=== PATIENT | female | born 1995 | race Caucasian/White ===

== ENCOUNTER 2019-11-02 17:04 | Outpatient (CLI) | payer BC, MEDICAID ==
[2019-11-02 18:01] LABS: APPEARANCE,URINE SLIGHTLY-CLOUDY; BILIRUBIN,URINE NEGATIVE (NEGATIVE); COLOR,URINE YELLOW; GLUCOSE, URINE NEGATIVE (NEGATIVE); KETONES,URINE NEGATIVE (NEGATIVE); LEUKOCYTE ESTERASE,URINE NEGATIVE (NEGATIVE); NITRITE,URINE NEGATIVE (NEGATIVE); PROTEIN,URINE NEGATIVE (NEGATIVE); URINE SPECIFIC GRAVITY 1.009; UROBILINOGEN,URINE NEGATIVE mg/dL (<2.0)
[2019-11-02 18:22] LABS: URINE AMPHETAMINES SCREEN NEGATIVE; URINE BARBITURATES SCREEN NEGATIVE; URINE BENZODIAZEPINES SCREEN NEGATIVE; URINE COCAINE SCREEN NEGATIVE; URINE MARIJUANA (THC) SCREEN NEGATIVE; URINE METHADONE SCREEN NEGATIVE; URINE PHENCYCLIDINE SCREEN NEGATIVE
== END 2019-11-02 18:19 | disposition home or self-care (01) ==
LOC: LC 17:04
PROVIDERS: ATTEND Obstetrics & Gynecology Gynecology
DX: O99.89 Other specified diseases and conditions complicating pregnancy, childbirth and the puerperium (principal); R10.32 Left lower quadrant pain; Z3A.23 23 weeks gestation of pregnancy
CPT/HCPCS: 80307; 81001

== ENCOUNTER 2020-01-23 17:41 | Outpatient (CLI) | payer BC, MEDICAID ==
[2020-01-23 18:55] LABS: APPEARANCE,URINE CLEAR; BILIRUBIN,URINE NEGATIVE (NEGATIVE); COLOR,URINE STRAW; GLUCOSE, URINE NEGATIVE (NEGATIVE); KETONES,URINE NEGATIVE (NEGATIVE); LEUKOCYTE ESTERASE,URINE NEGATIVE (NEGATIVE); NITRITE,URINE NEGATIVE (NEGATIVE); PROTEIN,URINE NEGATIVE (NEGATIVE); URINE SPECIFIC GRAVITY 1.004; UROBILINOGEN,URINE NEGATIVE mg/dL (<2.0)
[2020-01-23 19:00] LABS: ADD MANUAL MICROSCOPIC YES; RBC,URINE RARE /HPF
[2020-01-23 19:17] LABS: URINE AMPHETAMINES SCREEN NEGATIVE; URINE BARBITURATES SCREEN NEGATIVE; URINE BENZODIAZEPINES SCREEN NEGATIVE; URINE COCAINE SCREEN NEGATIVE; URINE MARIJUANA (THC) SCREEN NEGATIVE; URINE METHADONE SCREEN NEGATIVE; URINE PHENCYCLIDINE SCREEN NEGATIVE
--- NOTE | 2020-01-23 20:46 | Non Stress Test Report ---
Non Stress Test Datetime Report Generated by CPN: 01/23/2020 20:46 DEMOGRAPHIC EGA NST: 35.4 INDICATION Indication for Study (NST) Other: Labor Check - Contractions VITAL SIGNS Pulse - NST: 82 RESP - NST: 17 NBPSYS NST: 108 MONITORING Monitor Explained: Monitor Explained; Test Explained; Patient Verbalized Understanding Time on Monitor: 01/23/2020 17:52 Time off Monitor: 01/23/2020 20:13 NST INTERVENTIONS NST Interventions: PO Hydration Physician Notified NST: Dr. Suarez BABY A: [id number] BABY A Movement : Present Contraction Frequency : 3-7 FHR Baseline : 130 Accelerations : 15X15 Decelerations : None Variability : Moderate 6-25bpm NST Review: Meets Criteria for Reactive NST NST Review and Verified By : Deann Monzon RN NST Results: Reactive NST REPORT Report Trigger: Send Report
== END 2020-01-23 20:23 | disposition home or self-care (01) ==
LOC: LC 17:41
PROVIDERS: ATTEND Obstetrics & Gynecology
DX: O47.03 False labor before 37 completed weeks of gestation, third trimester (principal); Z3A.35 35 weeks gestation of pregnancy
CPT/HCPCS: 59025; 80307; 81001

== ENCOUNTER 2020-02-11 21:32 | Outpatient (CLI) | payer BC, MEDICAID ==
[2020-02-11 22:19] LABS: APPEARANCE,URINE CLEAR; BILIRUBIN,URINE NEGATIVE (NEGATIVE); COLOR,URINE STRAW; GLUCOSE, URINE NEGATIVE (NEGATIVE); KETONES,URINE NEGATIVE (NEGATIVE); LEUKOCYTE ESTERASE,URINE NEGATIVE (NEGATIVE); NITRITE,URINE NEGATIVE (NEGATIVE); PROTEIN,URINE NEGATIVE (NEGATIVE); URINE SPECIFIC GRAVITY 1.006; UROBILINOGEN,URINE NEGATIVE mg/dL (<2.0)
[2020-02-11 22:46] LABS: URINE AMPHETAMINES SCREEN NEGATIVE; URINE COCAINE SCREEN NEGATIVE; URINE MARIJUANA (THC) SCREEN NEGATIVE; URINE METHADONE SCREEN NEGATIVE; URINE PHENCYCLIDINE SCREEN NEGATIVE
[2020-02-11 22:49] LABS: URINE BENZODIAZEPINES SCREEN NEGATIVE
[2020-02-11 22:51] LABS: URINE BARBITURATES SCREEN NEGATIVE
--- NOTE | 2020-02-11 23:01 | Non Stress Test Report ---
Non Stress Test Datetime Report Generated by CPN: 02/11/2020 23:00 DEMOGRAPHIC EGA NST: 38.2 INDICATION Indication for Study (NST) Other: decreased movement MONITORING Monitor Explained: Monitor Explained; Test Explained; Patient Verbalized Understanding Time on Monitor: 02/11/2020 21:45 Time off Monitor: 02/11/2020 22:50 NST Duration: 65 NST INTERVENTIONS NST Interventions: PO Hydration; Reposition Patient Physician Notified NST: Dr. Pimentel BABY A: [id number] BABY A Movement : Present Contraction Frequency : irregular FHR Baseline : 120 Accelerations : 15X15 Decelerations : None Variability : Moderate 6-25bpm NST Review: Meets Criteria for Reactive NST NST Review and Verified By : Seamus Bellavamaida RN NST Results: Reactive NST REPORT Report Trigger: Send Report
== END 2020-02-11 22:57 | disposition home or self-care (01) ==
LOC: LC 21:32
PROVIDERS: ATTEND Obstetrics & Gynecology Gynecology
DX: O36.8130 Decreased fetal movements, third trimester, not applicable or unspecified (principal); Z3A.36 36 weeks gestation of pregnancy; Z02.83 Encounter for blood-alcohol and blood-drug test
CPT/HCPCS: 59025; 80307; 81005; 84112

== ENCOUNTER 2020-02-15 12:28 | Outpatient (CLI) | payer BC, MEDICAID ==
[2020-02-15 13:45] LABS: APPEARANCE,URINE CLEAR; BILIRUBIN,URINE NEGATIVE (NEGATIVE); COLOR,URINE STRAW; GLUCOSE, URINE 50 mg/dL (NEGATIVE); KETONES,URINE NEGATIVE (NEGATIVE); LEUKOCYTE ESTERASE,URINE NEGATIVE (NEGATIVE); NITRITE,URINE NEGATIVE (NEGATIVE); PROTEIN,URINE NEGATIVE (NEGATIVE); URINE SPECIFIC GRAVITY 1.003; UROBILINOGEN,URINE NEGATIVE mg/dL (<2.0)
[2020-02-15 14:09] LABS: URINE AMPHETAMINES SCREEN NEGATIVE; URINE BARBITURATES SCREEN NEGATIVE; URINE BENZODIAZEPINES SCREEN NEGATIVE; URINE COCAINE SCREEN NEGATIVE; URINE MARIJUANA (THC) SCREEN NEGATIVE; URINE METHADONE SCREEN NEGATIVE; URINE PHENCYCLIDINE SCREEN NEGATIVE
== END 2020-02-15 15:30 | disposition home or self-care (01) ==
LOC: LC 12:28
PROVIDERS: ATTEND Obstetrics & Gynecology Gynecology
DX: O47.1 False labor at or after 37 completed weeks of gestation (principal); Z3A.38 38 weeks gestation of pregnancy
CPT/HCPCS: 80307; 81005; 84112

== ENCOUNTER 2020-03-01 15:02 | Inpatient (IN) | payer BC, MEDICAID ==
[2020-03-01] MEDS ORDERED: RINGERS SOLUTION,LACTATED 1,000 ML IV ONE (15:16)
[2020-03-01] MEDS ORDERED: MISOPROSTOL 0.2 MG TABLET ONE (15:23)
[2020-03-01] MEDS ORDERED: OXYTOCIN 10 UNIT/ML VIAL ONE (15:23)
[2020-03-01] MEDS ORDERED: LIDOCAINE 1% INJ-PF (10 MG/ML) 30 ML SDV ONE (15:23)
[2020-03-01] MEDS ORDERED: OXYTOCIN/0.9 % SODIUM CHLORIDE 30 UNIT/500 ML RTUINJ ONE (15:23)
[2020-03-01 15:40] LABS: APPEARANCE,URINE SLIGHTLY-CLOUDY; BILIRUBIN,URINE NEGATIVE (NEGATIVE); COLOR,URINE STRAW; GLUCOSE, URINE NEGATIVE (NEGATIVE); KETONES,URINE NEGATIVE (NEGATIVE); LEUKOCYTE ESTERASE,URINE NEGATIVE (NEGATIVE); NITRITE,URINE NEGATIVE (NEGATIVE); PROTEIN,URINE NEGATIVE (NEGATIVE); URINE SPECIFIC GRAVITY 1.005; UROBILINOGEN,URINE NEGATIVE mg/dL (<2.0)
[2020-03-01 15:54] LABS: ABSOLUTE LYMPHOCYTES (AUTO) 1.5 10^3/uL (0.5-4.7); ABSOLUTE MONOCYTES (AUTO) 0.5 10^3/uL (0.1-1.4); ABSOLUTE NEUT (AUTO) 6.5 10^3/uL (1.7-8.2); BASOPHILS % (AUTO) 0.4 % (0-2); EOSINOPHILS % (AUTO) 0.2 % (0-6); HEMATOCRIT 33.3 % (36.0-47.0); HEMOGLOBIN 11.5 g/dL (12.0-15.5); LYMPHOCYTES % (AUTO) 17.3 % (13-45); MEAN CORPUSCULAR HEMOGLOBIN 32.7 pg (27.0-33.4); MEAN CORPUSCULAR HGB CONC 34.5 g/dL (32.0-36.0); MEAN CORPUSCULAR VOLUME 95 fl (80-97); MONOCYTES % (AUTO) 6.2 % (3-13); PLATELET COUNT 117 10^3/uL (150-450); RED BLOOD COUNT 3.51 10^6/uL (3.72-5.28); RED CELL DISTRIBUTION WIDTH 15.2 % (11.5-14.0); SEGMENTED NEUTROPHILS % (AUTO) 75.9 % (42-78); TOTAL CELLS COUNTED % (AUTO) 100 %; WHITE BLOOD COUNT 8.6 10^3/uL (4.0-10.5)
[2020-03-01 16:03] LABS: URINE AMPHETAMINES SCREEN NEGATIVE; URINE BARBITURATES SCREEN NEGATIVE; URINE BENZODIAZEPINES SCREEN NEGATIVE; URINE COCAINE SCREEN NEGATIVE; URINE MARIJUANA (THC) SCREEN NEGATIVE; URINE METHADONE SCREEN NEGATIVE; URINE PHENCYCLIDINE SCREEN NEGATIVE
[2020-03-01] MEDS: RINGERS SOLUTION,LACTATED 1,000 ML IV PRN ×3 (16:17→22:35)
[2020-03-01] MEDS ORDERED: NALBUPHINE HCL INJ 10 MG/1 ML AMPULE IV ONE (16:50)
[2020-03-01] MEDS ORDERED: PROMETHAZINE HCL INJ 25 MG/1 ML VIAL IV ONE (16:50)
[2020-03-01] MEDS ORDERED: NALBUPHINE HCL INJ 10 MG/1 ML AMPULE ONE (16:51)
[2020-03-01] MEDS ORDERED: PROMETHAZINE HCL INJ 25 MG/1 ML VIAL ONE (16:51)
[2020-03-01] MEDS ORDERED: FENTANYL/BUPIVACAINE/NS/PF 300 MCG/150 ML RTUINJ EPI ONE (18:02)
[2020-03-01] MEDS ORDERED: ROPIVACAINE HCL 0.2% INJ/PF (2 MG/ML) 20 ML SDV ONE (18:02)
[2020-03-01] MEDS ORDERED: EPHEDRINE SULFATE INJ 50 MG/1 ML AMPULE ONE (18:02)
--- NOTE | 2020-03-02 00:47 | Admission Physical ---
Datetime Report Generated by CPN: 03/02/2020 00:46 CURRENT ADMISSION Chief Complaint: Uterine Contractions; Suspected Ruptured Membranes Indication for Induction: Not Applicable Admit Impression : Term, Intrauterine Admit Plan: Admit to Unit; Initiate Labor Protocol ALLERGIES Medication Allergies: No Medication Allergies: No Known Allergies (03/01/2020) Latex: No Latex Allergies Food Allergies: none Environmental Allergies: none OBSTETRICAL HISTORY EDC: 02/23/2020 00:00 : 1 Para: 0 Term: 0 : 0 SAB: 0 IAB: 0 Ectopic: 0 Livin Cesareans: 0 VBACs: 0 Multiple Births: 0 Gestational Diabetes: No Rh Sensitization: No Incompetent Cervix: No JOVANA: No Infertility: No ART Treatment: No Uterine Anomaly: No IUGR: No Hx Previous C/S: No Macrosomia: No Hx Loss/Stillborn: No PIH: No Hx : No Placenta Previa/Abruption: No Depression/PP Depression: Yes PTL/PROM: No Post Hemorrhage: No Current Procedures: Ultrasound Obstetrical History Comments: G1- current SEE RECORDS Alcohol: No Marijuana : No Cocaine: No Other Illicit Drugs: No Cigarettes: Never Smoker. 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 Surgery: No Heart Disease: No Hosp/Surgery: No Autoimmune Disorder: No Anesthetic Complications: No Kidney Disease: No Abnormal Pap Smear: No Neuro/Epilepsy: No Psychiatric Disorders: No Other Medical Diseases: Yes Hepatitis/Liver Disease: No Significant Family History: No Varicosities/Phlebitis: No Trauma/Violence : No Thyroid Dysfunction: No Medical History Comments: fibromyalgia and depression INFECTIOUS HISTORY Gonorrhea: No Genital Herpes: No Chlamydia: No Tuberculosis: No Syphilis: No Hepatitis: No HIV/AIDS Exposure: No Rash or Viral Illness: No HPV: No PHYSICAL EXAM General: Normal HEENT: Normal Neurologic: Normal Thyroid: Normal Heart: Normal Lungs: Normal Breast: Deferred Back: Normal Abdomen: Normal Genitourinary Exam: Normal Extremities: Normal DTRs: Normal Pelvic Type: Adequate FETUS A EGA: 41.1 PLANS FOR LABOR AND DELIVERY Labor and Delivery: None Pain Management: Medications; Epidural Feeding Preference: Breast Benefit of Breast Feed Discussed: Yes Circumcision: N/A INFORMED CONSENT Signature: with User ID: [email or web address]
[2020-03-02] MEDS ORDERED: ACETAMINOPHEN 325 MG TABLET PO ONE (02:19)
[2020-03-02] MEDS ORDERED: AMPICILLIN SOD/SULBACTAM 3 GM VIAL ONE (02:19)
[2020-03-02] MEDS ORDERED: ACETAMINOPHEN 325 MG TABLET ONE (02:22)
[2020-03-02] MEDS ORDERED: NA PHOS,M-B/NA PHOS,DI-BA (ADULT) 133 ML ENEMA PR PRN (04:05)
[2020-03-02] MEDS ORDERED: PROMETHAZINE HCL 25 MG SUPP.RECT PR PRN (04:05)
[2020-03-02] MEDS ORDERED: ACETAMINOPHEN 650 MG SUPP.RECT PR PRN (04:05)
[2020-03-02] MEDS ORDERED: ZOLPIDEM TARTRATE 5 MG TABLET PO PRN (04:05)
[2020-03-02] MEDS ORDERED: GLYCERIN/WITCH HAZEL LEAF 1 EACH MED..WIPE TP PRN (04:05)
[2020-03-02] MEDS ORDERED: ACETAMINOPHEN WITH CODEINE #3 TABLET PO PRN (04:05)
[2020-03-02] MEDS ORDERED: DIPH/PERTUSS(ACELL)/TETANUS VAC/PF 0.5 ML SYR (>=10YO) IM PRN (04:05)
[2020-03-02] MEDS ORDERED: OXYTOCIN/0.9 % SODIUM CHLORIDE 30 UNIT/500 ML RTUINJ IV PRN (04:05)
[2020-03-02] MEDS ORDERED: MAGNESIUM HYDROXIDE SUSP 30 ML UDCUP PO PRN (04:05)
[2020-03-02] MEDS ORDERED: DIBUCAINE 1% OINTMENT 28 GM TP PRN (04:05)
[2020-03-02] MEDS ORDERED: DIPHENHYDRAMINE HCL 25 MG CAPSULE PO PRN (04:05)
[2020-03-02] MEDS ORDERED: PSEUDOEPHEDRINE HCL 30 MG TABLET PO PRN (04:05)
[2020-03-02] MEDS ORDERED: PROMETHAZINE HCL 25 MG TABLET PO PRN (04:05)
[2020-03-02] MEDS ORDERED: PROMETHAZINE HCL INJ 25 MG/1 ML VIAL IV PRN (04:05)
[2020-03-02] MEDS ORDERED: MEASLES,MUMPS&RUBELLA VACC/PF 0.5 ML VIAL SUBCUT PRN (04:05)
[2020-03-02] MEDS ORDERED: IBUPROFEN 800 MG TABLET ONE (05:00)
[2020-03-02] MEDS: IBUPROFEN 800 MG TABLET PO SCH ×3 (05:04→21:59)
[2020-03-02] MEDS ORDERED: AMPICILLIN SOD/SULBACTAM 1.5 GM VIAL IV SCH (06:00)
--- NOTE | 2020-03-02 06:06 | Delivery Summary ---
Del Sum A-C Datetime Report Generated by CPN: 03/02/2020 06:05 DELIVERY PERSONNEL DELIVERY PERSONNEL: [id number] Delivery Doctor:: Ezequiel Pimentel MD Labor and Delivery Nurse:: Heather Muse RNdirector funeral Nurse:: Jennifer Prado RN Nursery Nurse:: Ellen Sepulveda RN Nursery Nurse:: BART Gonzalez Tech/INSULATION EXTRUDER OPERATOR: Jazmin Davalos, ST MATERNAL INFORMATION Delivery Anesthesia: Epidural Medications After Delivery: Pitocin 30 Units in 500ml NS/D5W Delivery QBL: 250 Maternal Complications: Maternal Fever LABOR SUMMARY EDC: 02/23/2020 00:00 No. Babies in Womb: 1 Attempted: No Labor Anesthesia: Epidural LABOR INFORMATION Reason for Induction: Not Applicable Onset of Labor: 03/01/2020 15:14 Complete Dilatation: 03/02/2020 01:20 Oxytocin: N/A Group B Beta Strep: negative Steroids Given: None Reason Steroids Not Administered: Not Applicable MEMBRANES Membranes Rupture Method: Spontaneous Rupture of Membranes: 03/01/2020 13:30 Length of Rupture (hr): 14.30 Amniotic Fluid Color: Clear Amniotic Fluid Amount: Large Amniotic Fluid Odor: Normal STAGES OF LABOR Stage 1 hr: 10 Stage 1 min: 6 Stage 2 hr: 2 Stage 2 min: 28 Stage 3 hr: 0 Stage 3 min: 3 Total Time in Labor hr: 12 Total Time in Labor min: 37 VAGINAL DELIVERY Episiotomy: None Laceration #1: Perineal; Vaginal Laceration Extension #1: First Degree Laceration Repair: Not Applicable Sponge Count Correct: Yes Sharps Count Correct: Yes CSECTION DELIVERY Primary Indication: N/A Secondary Indication: N/A CSection Incidence: N/A Labor: N/A Elective: N/A CSection Incision: N/A BABY A INFORMATION Delivery Date/Time: 03/02/2020 03:48 Method of Delivery: Vaginal Nurse Controlled Delivery: No Born in Route : No : N/A Forceps: N/A Vacuum Extraction: Successful Shoulder Dystocia : No ASSISTED DELIVERY BABY A Indication for Assisted Delivery: poor maternal effort Catheter Prior to Procedure: Yes Station Vacuum/Forcep Apply: +1 Vacuum Number of Pulls: 3 Vacuum Number of PopOffs: 3 Vacuum Maximum Pressure Obtained: green Reduce Pressure btwn Ctx: Yes Type of Forceps: kiwi PRESENTATION/POSITION BABY A Presentation: Cephalic Cephalic Presentation: Vertex Vertex Position: Direct OP Breech Presentation: N/A PLACENTA INFORMATION BABY A Placenta Delivery Time : 03/02/2020 03:51 Placenta Method of Delivery: Spontaneous Placenta Status: Delivered SCORES BABY A Heart Rate 1 min: >100 bpm Resp Effort 1 min: Good Cry Reflex Irritability 1 min: Cough or Sneeze or Pulls Away Muscle Tone 1 min: Flaccid Color 1 min: Body Sem[place], Extremities Blue Resuscitation Effort 1 min: Tactile Stimulation SCORE 1 MIN: 7 Heart Rate 5 min: >100 bpm Resp Effort 5 min: Good Cry Reflex Irritability 5 min: Cough or Sneeze or Pulls Away Muscle Tone 5 min: Active Motion Color 5 min: Body [place], Extremities Blue SCORE 5 MIN: 9 INFORMATION BABY A Gestational Age at Delivery: 41.1 Gestational Status: Late Term- 41- 41.6 Weeks Outcome : Liveborn Infant Condition : Stable Infant Sex: Female IDENTIFICATION BABY A Infant Verification Date/Time: 03/02/2020 04:03 ID Band Number: [id number] Mother's Name Verified: Yes RN Verifying Infant: Johan, A, RN Additional Verifying Personnel: [email or web address] RN CORD INFORMATION BABY A No. Cord Vessels: 3 Nuchal Cord : Around Neck x1, Loose Cord Blood Taken: Yes-For Storage (Mom's Blood type +) Infant Suction: None ASSESSMENT BABY A Infant Complications: Extended Tachycardia Physical Findings at Delivery: Molding of the Head Physical Findings- Other: see initial assessment performed by nursery RN Respirations: Appears Normal Skin to Skin: Yes Baggage And Mail Agent/ALS Called : No Care By: Phylicia Reyna RN and Marlon Sepulveda RN Transferred To: Remains with Mother BABY B INFORMATION : N/A SIGNATURES Signature: with User ID: [email or web address]
--- NOTE | 2020-03-02 06:06 | Birth Certificate Data ---
Cert Data Datetime Report Generated by CPIsael: 03/02/2020 06:05 CERTIFICATE DATA 47a. Care: Yes (11/02/2019 17:16:Josefina Monzon RN) 47b. Date of First Visit: 07/25/2019 00:00 (11/02/2019 17:16:Alejandrina Salgado RN) 47c. Date of Last Visit: 02/29/2020 00:00 (11/02/2019 17:16:Alejandrina Salgado RN) 47d. Number of Visits: 14 (11/02/2019 17:16:Alejandrina Salgado RN) 48a. Number of Prev Live Births: 0 (11/02/2019 17:16:Josefina Monzon RN) 48b. Now Livin (11/02/2019 17:16:Ginna Ram RN) 48c. Live Births Now : 0 (11/02/2019 17:16:QS system process) 48e. Losses: 0 (11/02/2019 17:16:Josefina Monzon RN) RISK FACTORS IN THIS 49a. Diabetes: No (11/02/2019 17:16:Alejandrina Salgado RN) 49b. Hypertension: No (11/02/2019 17:16:Alejandrina Salgado RN) 49c. Previous Births: 0 (11/02/2019 17:16:Ginna Ram RN) 49d. Stillborns: No (11/02/2019 17:16:Alejandrina Salgado RN) 49d. IUGR: No (11/02/2019 17:16:Alejandrina Salgado RN) 49e. Infertility Treatment: No (11/02/2019 17:16:Alejandrina Salgado RN) 49f. Previous Cesareans: 0 (11/02/2019 17:16:Josefina Monzon RN) Mother's Height 50b. Height Inches: 64 (03/02/2020 06:00:QS system process) Mother's Weight 51a. Pre- Weight (lbs): 122 (11/02/2019 17:16:Alejandrina Salgado RN) 51b. Weight at Delivery (lbs): 167 (03/02/2020 06:00:QS system process) 52. Dt Last Normal Menses Began: 05/19/2019 00:00 (11/02/2019 17:16:Alejandrina Salgado RN) Infections Present/Treated 53a. Gonorrhea: No (11/02/2019 17:16:Alejandrina Salgado RN) Results this Hospital Visit : Negative (11/02/2019 17:16:Alejandrina Salgado RN) 53b. Syphilis: No (11/02/2019 17:16:Alejandrina Salgado RN) 53c. Chlamydia: No (11/02/2019 17:16:Alejandrina Salgado RN) Results this Hospital Visit: Negative (11/02/2019 17:16:Alejandrina Salgado RN) 53d. Hepatitis B: No (11/02/2019 17:16:Alejandrina Salgado RN) Results this Hospital Visit: Negative (11/02/2019 17:16:Rosie Romero RN) 53e. Hepatitis C: Negative (11/02/2019 17:16:Alejandrina Salgado RN) 53h. Mother Tested for HBsAG: Yes (11/02/2019 17:16:Alejandrina Salgado RN) 53i. Date Tested: 07/25/2019 00:00 (11/02/2019 17:16:Alejandrina Salgado RN) 53j. Test Result: Negative (11/02/2019 17:16:Rosie Romero RN) Obstetric Procedures 54a, b, c. Obstetric Procedures: Ultrasound (11/02/2019 17:16:Alejandrina Salgado RN) Cigarette Smoking Cigarette Smoking: Never Smoker. [id number] (11/02/2019 17:16:Josefina Monzon RN) 55a. 3 Months Before Preg - Ci (11/02/2019 17:16:Josefina Monzon RN) 55b. 1st Trimester of Preg- Ci (11/02/2019 17:16:Josefina Monzon RN) 55c. 2nd Trimester of Preg- Ci (11/02/2019 17:16:Josefina Monzon RN) 55d. 3rd Trimester of Preg- Ci (11/02/2019 17:16:Josefina Monzon RN) Onset of Labor 56a. PROM >12 Hrs: 14.30 (03/01/2020 15:26:QS system process) 56b. Precipitous Labor <3 Hrs: 12 (11/02/2019 17:16:QS system process) 56c. Prolonged Labor > 20 Hrs: 12 (11/02/2019 17:16:QS system process) 57a. Induction of Labor: N/A (11/02/2019 17:16:Elida Chambers RN) 57c. Non-Vertex Presentation A: Vertex (11/02/2019 17:16:Elida Chambers RN) 57d. Steroids - Lung Mat: None (11/02/2019 17:16:Elida Chambers RN) 57d. Steroids - Lung Mat: Not Applicable (11/02/2019 17:16:Elida Chambers RN) 57g. Moderate/Heavy Meconium: Clear (03/01/2020 15:26:Alejandrina Salgado RN) 57h. Intolerance of Labor: N/A (11/02/2019 17:16:Elida Chambers RN) : N/A (11/02/2019 17:16:Elida Chambers RN) 57i. Epidural/Spinal Anesthesia: Epidural (11/02/2019 17:16:Elida Chambers RN) Method of Delivery 58a. Forceps - Unsuccessful A: N/A (11/02/2019 17:16:Anna Sparrow RN) 58b. Vacuum - Unsuccessful A: Successful (11/02/2019 17:16:Elida Chambers RN) 58c. Presentation at 58c. Presentation at - A : Vertex (11/02/2019 17:16:Elida Chambers RN) 58c. Presentation at - A : N/A (11/02/2019 17:16:Elida Chambers RN) 58c. Presentation at - A : Cephalic (03/02/2020 00:23:Heather Muse RN) Final Route and Method of Del 58d. Baby A Route/Delivery: Vaginal (03/02/2020 03:47:Heather Muse RN) 58e. Trial of Labor Attempted: No (11/02/2019 17:16:Elida Chambers RN) 58e. Trial of Labor Attempted A: N/A (11/02/2019 17:16:Elida Chambers RN) 58e. Trial of Labor Attempted B: N/A (11/02/2019 17:16:Elida Chambers RN) Maternal Morbidity 59b. 3rd or 4th Degree Lacs: Perineal; Vaginal (11/02/2019 17:16:Ezequiel Pimentel MD ([facility])) 61. GA at Delivery Baby A: 41.1 (11/02/2019 17:16:Elida Chambers RN) : Late Term- 41- 41.6 Weeks (11/02/2019 17:16:QS system process) 62a. 5 Minute Baby A: 9 (11/02/2019 17:16:QS system process)
[2020-03-02] MEDS: FERROUS SULFATE 325 MG TABLET PO SCH ×2 (09:13→18:40)
[2020-03-02] MEDS: SENNOSIDES/DOCUSATE 8.6-50 MG 1 EACH TABLET PO SCH (09:13)
[2020-03-02] MEDS: PRENATAL VITAMIN W DHA CAPSULE PO SCH (09:13)
[2020-03-02] MEDS: FAMOTIDINE 20 MG TABLET PO SCH ×2 (09:13→21:59)
[2020-03-02] MEDS: DOCUSATE SODIUM 100 MG CAPSULE PO SCH ×2 (09:13→18:39)
[2020-03-02] MEDS: AMPICILLIN SODIUM/SULBACTAM NA 1.5 GM in NORMAL SALINE 50 ML IV SCH ×2 (09:14→14:37)
[2020-03-02] MEDS: BENZOCAINE/MENTHOL AEROSOL SPRAY 56 ML TOP PRN (09:23)
[2020-03-03] MEDS: IBUPROFEN 800 MG TABLET PO SCH ×3 (06:10→23:26)
[2020-03-03 08:22] LABS: HEMATOCRIT 28.4 % (36.0-47.0); HEMOGLOBIN 9.7 g/dL (12.0-15.5); MEAN CORPUSCULAR HEMOGLOBIN 32.8 pg (27.0-33.4); MEAN CORPUSCULAR HGB CONC 34.3 g/dL (32.0-36.0); MEAN CORPUSCULAR VOLUME 96 fl (80-97); RED BLOOD COUNT 2.96 10^6/uL (3.72-5.28); RED CELL DISTRIBUTION WIDTH 15.1 % (11.5-14.0)
[2020-03-03] MEDS: FAMOTIDINE 20 MG TABLET PO SCH ×2 (09:10→23:26)
[2020-03-03] MEDS: DOCUSATE SODIUM 100 MG CAPSULE PO SCH ×2 (09:10→17:09)
[2020-03-03] MEDS: FERROUS SULFATE 325 MG TABLET PO SCH ×2 (09:10→17:09)
[2020-03-03] MEDS: PRENATAL VITAMIN W DHA CAPSULE PO SCH (09:10)
[2020-03-03] MEDS: SENNOSIDES/DOCUSATE 8.6-50 MG 1 EACH TABLET PO SCH (09:10)
--- NOTE | 2020-03-03 09:28 | PDOC PROGRESS REPORT ---
Subjective-OB Progress Note for:: 03/03/20 - PP day #1, doing well, UOB, voiding, A+, Rubella Immune, Physical Exam (OB) Vital Signs: Temp Pulse Resp BP Pulse Ox 97.9 F 76 16 98/63 L 97 03/03/20 08:00 03/03/20 07:18 03/03/20 07:18 03/03/20 07:18 03/03/20 07:18 Intake & Output 03/02/20 03/03/20 03/04/20 06:59 06:59 06:59 Intake Total 787 50 Output Total 300 Balance 487 50 Weight 75.6 kg - General General Appearance: Appears well, Alert In distress: None - PIH/Pre-Eclampsia DTR's: 2 + Clonus: Negative Headache: Absent Epigastric Pain: No Visual Changes: No - Maternal Morbidity 59. Maternal Morbidity (serious complications experinced by the mother associated with labor and delivery: None of the above - Lochia Lochia Amount: Small 10-25 ml Lochia Color: Rubra/Red - Abdomen Description: Soft Hernia Present: No Fundal Description: Firm, Midline Fundal Height: u/u - u/2 - Respiratory Respiratory Status: No respiratory distress - Abdominal Distension: No distension Tenderness: Nontender - Genitourinary Genitourinary Note: voiding - Extremities Upper extremity: Normal inspection Lower extremities: Normal inspection - Neurological Cognition: Normal Orientation: AAOx4 - Psychological Associated symptoms: Normal affect, Normal mood - Skin Skin Temperature: Warm Skin Moisture: Dry Assessment and Plan(PN) - Assessment and Plan (1) (normal spontaneous vaginal delivery) Is this a current diagnosis for this admission?: Yes Plan:: Ambulation encouraged, Routine PP orders - Time Spent with Patient Time with patient: Less than 15 minutes Medications reviewed and adjusted accordingly: Yes - Disposition Anticipated Discharge Disposition: Home, Self Care Anticipated Discharge Timeframe: within 24 hours
[2020-03-03 09:32] LABS: PLATELET COUNT 98 10^3/uL (150-450)
[2020-03-03] MEDS ORDERED: PROMETHAZINE HCL INJ 25 MG/1 ML VIAL IV PRN (12:30)
[2020-03-03] MEDS ORDERED: MEASLES,MUMPS&RUBELLA VACC/PF 0.5 ML VIAL SUBCUT PRN (12:30)
[2020-03-03] MEDS ORDERED: DIPH/PERTUSS(ACELL)/TETANUS VAC/PF 0.5 ML SYR (>=10YO) IM PRN (12:30)
[2020-03-04] MEDS: IBUPROFEN 800 MG TABLET PO SCH (05:05)
[2020-03-04 08:17] VITALS: BP 101/52
[2020-03-04] MEDS: PRENATAL VITAMIN W DHA CAPSULE PO SCH (09:36)
[2020-03-04] MEDS: SENNOSIDES/DOCUSATE 8.6-50 MG 1 EACH TABLET PO SCH (09:36)
[2020-03-04] MEDS: DOCUSATE SODIUM 100 MG CAPSULE PO SCH (09:36)
[2020-03-04] MEDS: BENZOCAINE/MENTHOL AEROSOL SPRAY 56 ML TOP PRN (09:36)
[2020-03-04] MEDS: FERROUS SULFATE 325 MG TABLET PO SCH (09:36)
[2020-03-04] MEDS: FAMOTIDINE 20 MG TABLET PO SCH (09:36)
--- NOTE | 2020-03-04 09:57 | PDOC DISCHARGE SUMMARY ---
Impression - Admit/DC Date/PCP Admission Date/Primary Care Provider: 03/01/20 15:24 Discharge Date: 03/04/20 - Discharge Diagnosis (1) Obstetrical laceration Is this a current diagnosis for this admission?: Yes (2) (normal spontaneous vaginal delivery) Is this a current diagnosis for this admission?: Yes - Additional Information Discharge Diet: Regular Discharge Activity: Balance Activity w/Rest, Pelvic Rest Prescriptions: Ibuprofen [Motrin 800 mg Tablet] 800 mg PO Q8HP PRN #60 tablet PRN Reason: Home Medications: Vit,Calc76/Iron/Folic [Prenatabs Rx Tablet] 1 each PO DAILY 11/02/19 Ibuprofen [Motrin 800 mg Tablet] 800 mg PO Q8HP PRN #60 tablet 03/04/20 Hospital Course 59. Maternal Morbidity (serious complications experinced by the mother associated with labor and delivery: None of the above Results Laboratory Results: WBC 10.0 10^3/uL (4.0-10.5) 03/03/20 07:02 RBC 2.96 10^6/uL (3.72-5.28) L 03/03/20 07:02 Hgb 9.7 g/dL (12.0-15.5) L 03/03/20 07:02 Hct 28.4 % (36.0-47.0) L 03/03/20 07:02 MCV 96 fl (80-97) 03/03/20 07:02 MCH 32.8 pg (27.0-33.4) 03/03/20 07:02 MCHC 34.3 g/dL (32.0-36.0) 03/03/20 07:02 RDW 15.1 % (11.5-14.0) H 03/03/20 07:02 Plt Count 98 10^3/uL (150-450) L 03/03/20 07:02 Lymph % (Auto) 17.3 % (13-45) 03/01/20 15:27 [place] % (Auto) 6.2 % (3-13) 03/01/20 15:27 Eos % (Auto) 0.2 % (0-6) 03/01/20 15:27 Baso % (Auto) 0.4 % (0-2) 03/01/20 15:27 Absolute Neuts (auto) 6.5 10^3/uL (1.7-8.2) 03/01/20 15:27 Absolute Lymphs (auto) 1.5 10^3/uL (0.5-4.7) 03/01/20 15:27 Absolute Monos (auto) 0.5 10^3/uL (0.1-1.4) 03/01/20 15:27 Absolute Eos (auto) 0.0 10^3/uL (0.0-0.6) 03/01/20 15:27 Absolute Basos (auto) 0.0 10^3/uL (0.0-0.2) 03/01/20 15:27 Seg Neutrophils % 75.9 % (42-78) 03/01/20 15:27 Urine Color STRAW 03/01/20 15:09 Urine Appearance SLIGHTLY-CLOUDY 03/01/20 15:09 Urine pH 7.0 (5.0-9.0) 03/01/20 15:09 Ur Specific [place] 1.005 03/01/20 15:09 Urine Protein NEGATIVE mg/dL (NEGATIVE) 03/01/20 15:09 Urine Glucose (UA) NEGATIVE mg/dL (NEGATIVE) 03/01/20 15:09 Urine Ketones NEGATIVE mg/dL (NEGATIVE) 03/01/20 15:09 Urine Blood SMALL (NEGATIVE) H 03/01/20 15:09 Urine Nitrite NEGATIVE (NEGATIVE) 03/01/20 15:09 Urine Bilirubin NEGATIVE (NEGATIVE) 03/01/20 15:09 Urine Urobilinogen NEGATIVE mg/dL (<2.0) 03/01/20 15:09 Ur Leukocyte Esterase NEGATIVE (NEGATIVE) 03/01/20 15:09 Urine Ascorbic Acid NEGATIVE (NEGATIVE) 03/01/20 15:09 Urine Opiates Screen NEGATIVE 03/01/20 15:09 Urine Methadone Screen NEGATIVE 03/01/20 15:09 Ur Barbiturates Screen NEGATIVE 03/01/20 15:09 Ur Phencyclidine Scrn NEGATIVE 03/01/20 15:09 Ur Amphetamines Screen NEGATIVE 03/01/20 15:09 U Benzodiazepines Scrn NEGATIVE 03/01/20 15:09 Urine Cocaine Screen NEGATIVE 03/01/20 15:09 U Marijuana (THC) Screen NEGATIVE 03/01/20 15:09 RPR NONREACTIVE (NONREACTIVE) 03/01/20 15:27 Blood Type A POSITIVE 03/01/20 15:27 Antibody Screen NEGATIVE 03/01/20 15:27 Plan Plan of Treatment: follow up in 4 weeks at [facility] for post check
== END 2020-03-04 12:11 | disposition home or self-care (01) | DRG 806 ==
LOC: LC 15:02 → LR 15:24 → 2S 03-02 05:48
PROVIDERS: ADMIT Obstetrics & Gynecology Gynecology; ATTEND Obstetrics & Gynecology Gynecology
PROC: 10E0XZZ Delivery of Products of Conception, External Approach (ICD-10-PCS; principal; 2020-03-02)
PROC: 0HQ9XZZ Repair Perineum Skin, External Approach (ICD-10-PCS; 2020-03-02)
DX: O99.892 Other specified diseases and conditions complicating childbirth (principal); O75.2 Pyrexia during labor, not elsewhere classified; M79.7 Fibromyalgia; Z37.0 Single live birth; O70.0 First degree perineal laceration during delivery; O75.81 Maternal exhaustion complicating labor and delivery; O76 Abnormality in fetal heart rate and rhythm complicating labor and delivery; O69.81X0 Labor and delivery complicated by cord around neck, without compression, not applicable or unspecified; Z3A.41 41 weeks gestation of pregnancy
CPT/HCPCS: 1967; 36415; 80307; 81005; 85025; 85027; 86592; 86850; 86900; 86901; 94760; J0295; J2300; J2550; J2590; J2795; J3010; J3490